=== PATIENT | female | born 1950 | race Caucasian/White ===

== ENCOUNTER → 2023-04-22 11:17 | Outpatient (REF) | payer MEDICARE, OTHER, SELFPAY | LOC: HWRAD 11:17 | PROVIDERS: ATTENDING PHYSICIAN Internal Medicine; FAMILY PHYSICIAN Family Medicine | DX: R93.3 Abnormal findings on diagnostic imaging of other parts of digestive tract (principal) | CPT/HCPCS: 76700 ==

== ENCOUNTER 2023-09-11 19:39 | Emergency (ER) | payer MEDICARE, OTHER, SELFPAY ==
[2023-09-11 19:42] VITALS: BP 167/83
[2023-09-11 20:11] VITALS: BMI 23.3
[2023-09-11 20:17] VITALS: BP 170/85
--- NOTE | 2023-09-11 20:42 | ED.GENMED ---
History of Present Illness
General
Chief Complaint: Fatigue
Source: patient and family (son)
Time Seen by Provider: 09/11/23 20:23
Nursing documentation reviewed up to this point in time: agreed with
History of Present Illness
History of Present Illness:
The patient is a pleasant 73-year-old female who reports that she took a marijuana gummy this evening with her . She reports that both of them ' felt stoned', developed a dry mouth, and felt a little woozy. Patient reports she now feels
better but still feels stone. She denies all shortness of breath and chest pain. She reports she has not yet eaten dinner. She denies any leg pain and leg swelling. She denies headache. She denies nausea and vomiting. She denies any blood in
her stools.
Past History
Past History
ED Past Medical History: HTN
ED Past Surgical History: Other
Social History
Tobacco: Non-smoker
Alcohol: None
Drug: Marijuana
Personal:
Living: with family
Employment: Employed
Family History
Family History: Other
Review of Systems
Review of Systems
Allergies reviewed?: Yes
All Other Systems: ROS reviewed and negative except as documented in HPI and ROS
Constitutional: Reports no symptoms
EENT: Reports no symptoms
Respiratory: Reports no symptoms
Cardiac: Reports palpitations
ABD/GI: Reports no symptoms
: Reports no symptoms
Musculoskeletal: Reports no symptoms
Skin: Reports no symptoms
Neurological: Reports dizzy
Endocrine: Reports no symptoms
Hematologic/Lymphatic: Reports no symptoms
Psychiatric: Reports no symptoms
Phy Exam
Physical Exam
Physical Exam:
Physical Exam
General: no apparent distress, not acutely ill
Neck: supple. no meningeal signs. normal psoterior pharynx
Heart: s1/s2 regular rate and rhythm, no murmur. equal radial pulses. Heart rate 92
Lungs: no acute respiratory distress. clear bilaterally
Abdomen: normal bowel sounds. not tender. no CVAT
Neuro: alert and orientedx3 . no focal neurological deficits. Steady gait. 5 out of 5 strength in all extremities without drift. Cranial nerves equal and symmetric bilaterally. Normal [id number].
Skin: no rash
Psychiatric: well kept. interactive and cooperative
Extremities: no edema. no calf tenderness. negative homans. good distal pulses
Course
Orders/Labs/Results
Orders:
Orders
09/11/23 20:40
Electrocardiogram (*1) Urgent
Reason for Study: Vertigo / Dizzy
EKG- Treatment ONCE
Vital Signs
Initial and Last Documented VS:
Initial Vital Signs
Temp Pulse Resp BP Pulse Ox
98.3 F 110 20 167/83 99
09/11/23 19:42 09/11/23 19:42 09/11/23 19:42 09/11/23 19:42 09/11/23 19:42
Last Documented Vital Signs
Temp Pulse Resp BP Pulse Ox
98.3 F 93 15 151/86 96
09/11/23 19:42 09/11/23 20:57 09/11/23 20:57 09/11/23 20:57 09/11/23 20:45
MDM/Problems Addressed
Differential Diagnosis Includes:
Adverse effect from cannabis, dehydration, stroke, cardiac arrhythmia
MDM/Problems Addressed:
Patient presents with acute feelings of fatigue and dizziness very soon after consuming a marijuana gummy
Chronic conditions affecting care: HTN
Acute Exacerbation and/or Progression of Chronic Illness:
Patient is acutely hypertensive likely due to feeling uncomfortable from the marijuana and it causing a dry mouth, tachycardia
Acute Exacerbation and/or Progression of Chronic Illness: HTN
*Pulse Oximetry
Patient hypoxic: no
*EKG
Interpreted by ED Provider?: Yes
Interpretation: normal
Comparison EKG: no comparison EKG present
Rate: normal
Rhythm: sinus
[place]: normal axis
Interval: normal interval
QRS Pattern: normal QRS
Ischemia: no ischemia
*Meal Room Hand Interpretation
Rate: normal
Interpretation: normal
Rhythm: sinus
*Critical Care Note
Total Time (30-74mins, 75-104mins- exclusive of procedures): Not Applicable
Data Reviewed
Source: patient, spouse and family (Son)
Further Testing Considered But Not Given:
I considered doing basic blood work to check for acute anemia and dehydration, however, patient does not look pale and denies any recent illnesses. Patient is drinking water at the bedside and is able to self hydrate. Patient has a completely
normal neurological exam and there is doubtful there is been a stroke. She reports her symptoms were very soon after taking a new brand of THC Gummies. EKG shows a normal sinus rhythm.
Patient Management
Social determinants of health affecting care: Living situation and Strong social support
Escalation/DeEscalation of care consider admission/obs:
Patient appears well and stable. Encouraged to return with any chest pain or shortness of breath. Heart rate has improved. Encouraged to keep hydrating and eat dinner.
ED Attending Note
-
Portions of this chart may have been created with voice recognition software.� Occasional wrong word or��sound alike� substitutions may have occurred due to the inherent limitations of voice recognition software.
Discharge Plan
Departure
Patient Disposition: Home (Routine Discharge)
Date of Disposition: 09/11/23
Time of Disposition: 20:52
Patient with high blood pressure during this ER visit?: Yes
Condition: Good
Covid-19: Not Applicable
Discharge Problem:
Adverse effect of cannabis
Instructions: Marijuana, BLOOD PRESSURE
Referrals:
Jerrell Herrera MD [Family Provider] -
Activity Restrictions/Additional Instructions:
Please return if dizziness worsens, if you feel any chest pain or shortness of breath. Please drink lots of water and eat dinner tonight. Please do not use marijuana
Interventions
Interventions:
*Risk Screen - Suicide Last Done: 09/11/23 19:42
*General Assessment Last Done: 09/11/23 19:42
*Neglect/Abuse Screening Last Done: 09/11/23 19:42
ED- Fall Risk Assessment Last Done: 09/11/23 20:11
*ED COVID-19 Vaccine History Last Done: 09/11/23 20:11
*Nursing Disposition Last Done: 09/11/23 21:06
Discharge Date and Time
Discharge Date/Time: 09/11/23 21:07
Print Language: [place]
[2023-09-11 20:57] VITALS: BP 151/86
== END 2023-09-11 21:07 | disposition home or self-care (01) ==
LOC: EMR 19:39
PROVIDERS: EMERGENCY PHYSICIAN Emergency Medicine; FAMILY PHYSICIAN Family Medicine
DX: R53.83 Other fatigue (principal); R42 Dizziness and giddiness; R68.2 Dry mouth, unspecified; T40.715A Adverse effect of cannabis, initial encounter; X58.XXXA Exposure to other specified factors, initial encounter; I10 Essential (primary) hypertension
CPT/HCPCS: 99283; 93005

== ENCOUNTER → 2023-11-09 13:12 | Outpatient (REF) | payer MEDICARE, OTHER, SELFPAY | LOC: HWRCS 13:12 | PROVIDERS: ATTENDING PHYSICIAN Internal Medicine Cardiovascular Disease; FAMILY PHYSICIAN Physician Assistant | DX: I10 Essential (primary) hypertension (principal) | CPT/HCPCS: 93306 ==

== ENCOUNTER → 2023-11-12 11:53 | Outpatient (REF) | payer MEDICARE, OTHER, SELFPAY | LOC: DHCBC/DCA 11:53 | PROVIDERS: ATTENDING PHYSICIAN Internal Medicine Cardiovascular Disease; FAMILY PHYSICIAN Physician Assistant | DX: I10 Essential (primary) hypertension (principal); R07.89 Other chest pain | CPT/HCPCS: 78452; 93017; A9500; J2785 ==

== ENCOUNTER → 2023-12-08 11:55 | Outpatient (REF) | payer MEDICARE, OTHER, SELFPAY | LOC: RAD 11:55 | PROVIDERS: ATTENDING PHYSICIAN Nurse Practitioner Family | DX: D64.9 Anemia, unspecified (principal) | CPT/HCPCS: 71260; 74177; Q9967 ==

== ENCOUNTER 2024-04-08 06:23 | Day surgery (SDC) | payer MEDICARE, OTHER, SELFPAY | END 2024-04-08 13:52 | disposition home or self-care (01) | LOC: GI 06:23 | PROVIDERS: ATTENDING PHYSICIAN Internal Medicine Gastroenterology | DX: D50.9 Iron deficiency anemia, unspecified (principal); K64.8 Other hemorrhoids; K57.30 Diverticulosis of large intestine without perforation or abscess without bleeding; Q39.9 Congenital malformation of esophagus, unspecified; K44.9 Diaphragmatic hernia without obstruction or gangrene; K31.7 Polyp of stomach and duodenum; K22.10 Ulcer of esophagus without bleeding; K31.89 Other diseases of stomach and duodenum | CPT/HCPCS: 45378; 43239; 88305; 88342 ==

== ENCOUNTER 2024-07-15 06:19 | Day surgery (SDC) | payer MEDICARE, OTHER, SELFPAY | END 2024-07-15 10:29 | disposition home or self-care (01) | LOC: GI 06:19 | PROVIDERS: ATTENDING PHYSICIAN Internal Medicine Gastroenterology | DX: R12 Heartburn (principal); K28.9 Gastrojejunal ulcer, unspecified as acute or chronic, without hemorrhage or perforation; K44.9 Diaphragmatic hernia without obstruction or gangrene; K31.7 Polyp of stomach and duodenum; Q39.9 Congenital malformation of esophagus, unspecified; K31.89 Other diseases of stomach and duodenum | CPT/HCPCS: 43235 ==

== ENCOUNTER → 2024-12-21 20:05 | Outpatient (REF) | payer MEDICARE, OTHER, SELFPAY | LOC: MRI 20:05 | PROVIDERS: ATTENDING PHYSICIAN Student in an Organized Health Care Education/Training Program; FAMILY PHYSICIAN Family Medicine | DX: M54.50 Low back pain, unspecified (principal) | CPT/HCPCS: 72148; 73721 ==